=== PATIENT | male | born 2000 | race Hispanic/Latino ===

== ENCOUNTER 2023-12-27 01:08 | Emergency (ER) | payer BC, OTHER, SELFPAY ==
[~2023-12-27] VITALS: Ht 177.8 cm; Wt 84.8 kg
[~2023-12-27 01:08] MED LIST: ACET-685 PO; AMOX500T PO; AZIT500T PO; METR500T PO; PANT40TA3 PO
[2023-12-27 01:21] VITALS: BP 124/77; PULSE 63; RESP 16; TEMP 97.9; O2SAT 99
[2023-12-27] MEDS ORDERED: TORADOL ONE (01:28)
[2023-12-27] MEDS: TORADOL IM ONE (01:30)
[2023-12-27] MEDS ORDERED: NAPR-809 PO (01:37)
[2023-12-27] MEDS ORDERED: CYCL10TA19 PO (01:38)
== END 2023-12-27 01:45 | disposition home or self-care (01) ==
LOC: ER 01:08
DX: M25.561 Pain in right knee (principal); Z90.49 Acquired absence of other specified parts of digestive tract
CPT/HCPCS: 99284; 96372; J1885